=== PATIENT | male | born 1995 | race Caucasian/White ===

== ENCOUNTER 2017-10-14 23:54 | Inpatient (IN) | payer MEDICAID ==
[~2017-10-14] VITALS: Ht 175.3 cm; Wt 74.4 kg
[2017-10-15] VITALS: BP 141/82
--- NOTE | 2017-10-15 00:04 | NUR ---
PT TAKEN TO BED 10
--- NOTE | 2017-10-15 00:10 | NUR ---
PATIENT IS A 22 Y/O MALE WHO PRESENTS TO THE ED C/O ABD PAIN. PT STATES THAT IT STARTED TODAY. PT REPORTS 7/10 ACHING LOWER ABD PAIN THAT DOES NOT RADIATE. PT DENIES CP, SOB, REPORTS NAUSEA DENIES VOMITING/DIARRHEA. PT AWAKE AND ALERT, RR EVEN/UNLABORED. PT REPOSITIONED FOR COMFORT, BED IN LOWEST POSITION. ER MD DR. ORNELAS NOTIFIED. WILL CONTINUE TO MONITOR.
[2017-10-15] MEDS ORDERED: NACL 0.9% 1,000 ML IV SCH (00:11)
[2017-10-15] MEDS ORDERED: ONDANSETRON 4 MG/2 ML VIAL IVP ONE (00:15)
[2017-10-15] MEDS ORDERED: MORPHINE SULFATE 4 MG/ML SYR IVP ONE ×2 (00:15→01:55)
[2017-10-15 00:29] LABS: BASOPHILS % (AUTO) 0.2 % (0.0-2.0); EOSINOPHILS % (AUTO) 0.1 % (0.0-4.0); HEMATOCRIT 48.6 % (36-52); HEMOGLOBIN 16.5 g/dL (12.0-18.0); LYMPHOCYTES # (AUTO) 1.1 K/uL (2.0-11.5); LYMPHOCYTES % (AUTO) 10.3 % (20.5-51.1); MEAN CORPUSCULAR HEMOGLOBIN 31 pg (27-31); MEAN CORPUSCULAR HGB CONC 34 g/dL (33-37); MEAN CORPUSCULAR VOLUME 91.2 fL (80-94); MONOCYTES # (AUTO) 0.4 K/uL (0.8-1.0); NEUTROPHILS # (AUTO) 9.2 K/uL (1.8-7.7); NEUTROPHILS % (AUTO) 85.4 % (42.2-75.2); PLATELET COUNT (AUTO) 194 K/uL (140-450); RED BLOOD CELL COUNT(AUTO) 5.33 MIL/uL (4.20-6.10); RED CELL DISTRIBUTION WIDTH 13.4 % (11.6-13.7); WHITE BLOOD COUNT (AUTO) 10.8 K/uL (4.8-10.8)
[2017-10-15 00:35] LABS: APPEARANCE,URINE CLEAR (CLEAR); BILIRUBIN,URINE NEGATIVE (NEGATIVE); BLOOD, URINE NEGATIVE (NEGATIVE); COLOR,URINE YELLOW (YELLOW); LEUKOCYTE ESTERASE ,URINE NEGATIVE (NEGATIVE); NITRITE, URINE NEGATIVE (NEGATIVE); UGLUCOSE NEGATIVE (NEGATIVE)
[2017-10-15 00:45] LABS: RBC,URINE 0-5 (RARE) /HPF (0-5); URINE AMORPHOUS URATE 1+ /HPF (None Seen); WBC,URINE 0-5 (RARE) /HPF (0-5)
--- NOTE | 2017-10-15 00:50 | NUR ---
PATIENT TAKEN TO CT WITH TECH VIA WHEELCHAIR.
[2017-10-15 00:53] LABS: ALBUMIN 5.6 g/dL (3.4-5.0); CREATININE 0.9 mg/dL (0.7-1.3); POTASSIUM 3.8 mmol/L (3.5-5.1)
--- NOTE | 2017-10-15 01:01 | NUR ---
PT RETURN FROM CT
[2017-10-15 01:09] LABS: ANION GAP 13.4 (8-16); CARBON DIOXIDE 28.4 mmol/L (21-32)
--- NOTE | 2017-10-15 01:30 | NUR ---
Patient appears to be resting comfortably in bed. Vital Signs within normal limits. Respirations even and unlabored.
[2017-10-15] MEDS ORDERED: PIPERACILLIN/TAZOBACTAM 3.375 GM in DEXTROSE 5% 50 ML IV ONE (02:10)
[2017-10-15] MEDS ORDERED: metroNIDAZOLE 500 MG/NS PREMIX 100 ML IV ONE (02:10)
--- NOTE | 2017-10-15 02:10 | NUR ---
PATIENT IS RESTING AT THIS TIME. NO SIGNS OF DISTRESS.
[2017-10-15] MEDS ORDERED: PIPERACILLIN/TAZOBACTAM 3.375 GM VIAL IV ONE (02:19)
[2017-10-15] MEDS ORDERED: ACETAMINOPHEN 325 MG TAB PO PRN ×2 (02:30→19:30)
[2017-10-15] MEDS ORDERED: ZOLPIDEM 5 MG TAB PO PRN (02:30)
[2017-10-15] MEDS ORDERED: ONDANSETRON 4 MG/2 ML VIAL IVP PRN ×2 (02:30→18:40)
[2017-10-15] MEDS ORDERED: HYDROcodone/APAP 7.5/325 MG 1 TAB PO PRN (02:30)
[2017-10-15 02:53] LABS: PROTHROMBIN TIME 10.9 secs (10.8-13.4)
--- NOTE | 2017-10-15 03:00 | NUR ---
Pt transferred to Med/Surg 112B via W/C.
--- NOTE | 2017-10-15 03:00 | NUR ---
Patient will be admitted to care of DR. VARGHESE. Admited to M/S. Will go to room 112B. Belongings list completed. Report to GUSTABO LOCKHART.
--- NOTE | 2017-10-15 03:00 | NUR ---
PT ARRIVED TO UNIT VIA WHEELCHAIR BY ER NURSE GERONIMO-RN. REPORT GIVEN AT BEDSIDE. DR. PERKINS AT BEDSIDE. PT AOX4, ON ROOM AIR WITH LEFT AC #18G. DISCUSSED PLAN OF CARE AND PT VERBALIZED UNDERSTANDING. NO S/S OF RESPIRATORY DISTRESS OR DISCOMFORT NOTED AT THIS TIME. WHITE BOARD UPDATED. BED IN LOWEST POSITION, BED BREAKS ON, BOTH SIDE RAILS UP. BED SIDE TABLE AND CALL LIGHT ARE WITHIN REACH. ORIENTED PT TO BEDROOM, BED CONTROLS, CALL LIGHT, RESTROOM. WILL CONTINUE TO MONITOR.
[2017-10-15 03:01] LABS: BARBITURATE, URINE NEG. ng/ml (NEG <=200); BENZODIAZEPINE, URINE NEG. ng/mL (NEG <=200); CANNABINOID, URINE NEG. ng/mL (NEG <=50); COCAINE, URINE NEG. ng/mL (NEG <=300); OPIATE, URINE NEG. ng/mL (NEG <=2000); PHENCYCLIDINE SCREEN,URINE NEG. ng/mL (NEG <=25)
[2017-10-15 03:05] LABS: CHOL/HDL RATIO 3.5 (1-4.5); FREE T4 (FREE THYROXINE) 1.08 ng/dL (0.76-1.46); MAGNESIUM 1.9 mg/dL (1.8-2.4); PHOSPHORUS 4.2 mg/dL (2.5-4.9); THYROID STIMULATING HORMONE 0.84 uIU/mL (0.34-3.74)
[2017-10-15] MEDS: DEXT 5% /NACL 0.9% 1,000 ML IV SCH ×3 (03:14→23:00)
--- NOTE | 2017-10-15 03:30 | NUR ---
VITAL SIGNS TAKEN, MRSA COLLECTED AND TOLERATED WELL. NO S/S OF RESPIRATORY DISTRESS OR DISCOMFORT NOTED AT THIS TIME. PT C/O PAIN 06/21 HOWEVER HE STATED THAT IS A TOLERABLE LEVEL FOR HIM. WILL CONTINUE TO MONITOR.
--- NOTE | 2017-10-15 05:00 | NUR ---
PT RESTING IN BED. NO S/S OF RESPIRATORY DISTRESS OR DISCOMFORT NOTED AT THIS TIME. WILL CONTINUE TO MONITOR.
--- NOTE | 2017-10-15 06:10 | NUR ---
PT C/O PAIN 6/10- NORCO 7.5/325MG GIVEN AND TOLERATED WELL. NO S/S OF RESPIRATORY DISTRESS. WILL CONTINUE TO MONITOR.
--- NOTE | 2017-10-15 07:25 | NUR ---
ENDORSED PT CARE TO DAY SHIFT NURSE KIRSTIN FOR CONTINUITY OF CARE.
--- NOTE | 2017-10-15 07:30 | NUR ---
RECEIVED PT REPORT FROM RAILROAD CAR PAINTER RN. PT IS AAOX4, NO S/S OF SOB ON ROOM AIR. LEFT AC #18G, ASYMPTOMATIC AND INFUSING WELL. CC:ABD PAIN. POSSIBLE SX CONSULT FOR DR VALENCIA. DISCUSSED PLAN OF CARE AND PT VERBALIZED UNDERSTANDING. WHITE BOARD UPDATED. BED IN LOWEST POSITION, BED BREAKS ON, URINAL AND CALL LIGHT WITHIN REACH. ORIENTED PT TO BEDROOM, WILL CONTINUE TO MONITOR.
[2017-10-15 08:00] VITALS: BP 115/64
[2017-10-15] MEDS ORDERED: LACTOBACILLUS RHAMNOSUS GG 1 EACH CAP PO SCH (09:00)
[2017-10-15] MEDS: DOCUSATE SODIUM 100 MG GELCAP PO SCH ×2 (09:00→20:40)
--- NOTE | 2017-10-15 09:36 | NUR ---
PATIENT HAS BEEN SCREENED AND CATEGORIZED MODERATE NUTRITION RISK. PATIENT WILL BE SEEN WITHIN 3-5 DAYS OF ADMISSION. 10/17/17-10/19/[address]
[2017-10-15] MEDS: LACTOBACILLUS RHAMNOSUS GG 1 EACH CAP PO SCH (09:47)
--- NOTE | 2017-10-15 11:20 | NUR ---
PAGED DR VALENCIA FOR CONSULT.
--- NOTE | 2017-10-15 12:40 | NUR ---
DR VALENCIA HAS NOT CALLED BACK. NOTIFIED DR PRESTON WHO STATED HE ALREADY TEXT MESSAGED DR VALENCIA AND DR VALENCIA IS AWARE OF THE PT.
[2017-10-15] MEDS ORDERED: PIPERACILLIN/TAZOBACTAM 3.375 GM in DEXTROSE 5% 50 ML IV SCH (13:00)
[2017-10-15] MEDS ORDERED: DEXTROSE 5% 50 ML IV SCH (13:00)
[2017-10-15] MEDS: PIPER/TAZO 3.375GM/D5W PREMIX 50 ML IV SCH ×2 (13:16→20:40)
--- NOTE | 2017-10-15 15:40 | NUR ---
DR VALENCIA CALLED BACK. MADE HIM AWARE THE CONSULT. CT SHOWED ACUTE APPENDICITIS. DR VALENCIA STATED HE WILL COME SHORTLY.
[2017-10-15 16:03] VITALS: BP 114/64
--- NOTE | 2017-10-15 16:50 | NUR ---
DR VALENCIA HAS CAME AND TALKED TO PT ABOUT THE SX. PT AGREED WITH THE SX.
--- NOTE | 2017-10-15 17:05 | NUR ---
PT SIGNED CONSENT FOR THE SX. PT DOES NOT HAVE ANY QUESTIONS.
--- NOTE | 2017-10-15 17:30 | NUR ---
CHG WIPES GIVEN TO PT FOR CHEST, ABD AND BUE.
--- NOTE | 2017-10-15 18:00 | NUR ---
PT HAS BEEN TAKEN TO THE OR.
[2017-10-15] MEDS ORDERED: SUCCINYLCHOLINE CHLORIDE 200 MG/10 ML VIAL IVP ONE ×2 (18:20→18:28)
[2017-10-15] MEDS ORDERED: GLYCOPYRROLATE 0.2 MG/ML VIAL ONE (18:20)
[2017-10-15] MEDS ORDERED: ONDANSETRON 4 MG/2 ML VIAL ONE (18:20)
[2017-10-15] MEDS ORDERED: PROPOFOL 200 MG/20 ML VIAL IV ONE (18:20)
[2017-10-15] MEDS ORDERED: PHENYLEPHRINE 10 MG/ML VIAL ONE (18:20)
[2017-10-15] MEDS ORDERED: DESFLURANE 240 ML BTL INH ONE (18:20)
[2017-10-15] MEDS ORDERED: DEXAMETHASONE 4 MG/ML VIAL ONE (18:20)
[2017-10-15] MEDS ORDERED: ROCURONIUM 50 MG/5 ML VIAL IV ONE (18:20)
[2017-10-15] MEDS ORDERED: BUPIVACAINE-MPF/EPI 0.25% 30 ML VIAL INJ ONE (18:22)
[2017-10-15] MEDS ORDERED: fentaNYL 0.05 MG/ML VIAL ONE (18:24)
[2017-10-15] MEDS ORDERED: HYDROmorphone PFS 2 MG/ML SYR ONE (18:25)
[2017-10-15] MEDS ORDERED: HYDROmorphone 1 MG/ML AMP IVP PRN ×2 (18:40→19:30)
--- NOTE | 2017-10-15 19:14 | NUR ---
REPORT RECEIVED FROM AM NURSE AT BEDSIDE. PT IN STABLE CONDITION. AAOX4. INTRODUCED SELF AND BOARD UPDATED. IV SITE PATENT AND INTACT. SKIN WARM, DRY, AND NOT INTACT DUE TO SURGICAL WOUNDS AT THE ABDOMEN. DRESSINGS ARE DRY AND INTACT AND WERE NOT CHANGED THIS SHIFT. PT STATES NO PAIN. NO S/S OF DISTRESS. ENCOURAGED TO AMBULATE. BED LOCKED IN LOW POSITION. CALL [place] WITHIN REACH. Addendum: 10/17/17 at 0109 by Yomi Thornton RN NOTE DONE ON 10/16/17
--- NOTE | 2017-10-15 19:22 | NUR ---
ENDORSED PT TO DOWEL MAKER NURSE RN. PT IS IN OR AT THIS TIME.
--- NOTE | 2017-10-15 19:23 | NUR ---
RECEIVED PT REPORT FROM DAY SHIFT NURSE KIRSTIN. PT CURRENTLY OUT OF UNIT IN OR FOR LAPAROSCOPIC APPENDECTOMY SINCE 1799.
[2017-10-15] MEDS ORDERED: MORPHINE SULFATE 2 MG/ML SYR IVP PRN (19:30)
[2017-10-15] MEDS ORDERED: HYDROcodone/APAP 5/325 MG 1 TAB TAB PO PRN (19:30)
[2017-10-15] MEDS ORDERED: MORPHINE SULFATE 4 MG/ML SYR IV PRN (19:30)
[2017-10-15] MEDS ORDERED: ONDANSETRON 4 MG/2 ML VIAL IV PRN (19:30)
[2017-10-15 20:00] VITALS: BP 121/69
--- NOTE | 2017-10-15 20:00 | NUR ---
PT HAS ARRIVED FROM OR. RECEIVED REPORT FROM OR NURSE ENRIQUEZ-CHANTELLE AT BEDSIDE. VITAL SIGNS TOLERATED WELL AND STABLE. PT IS AAOX4-AWAKE, ON ROOM AIR, LEFT AC #18G-ASYMPTOMATIC AND INFUSING WELL. DISCUSSED PLAN OF CARE AND PT VERBALIZED UNDERSTANDING. NO S/S OF RESPIRATORY DISTRESS OR DISCOMFORT NOTED AT THIS TIME. WHITE BOARD UPDATED. BED IN LOWEST POSITION, BED BREAKS ON, BOTH SIDE RAILS UP. BED SIDE TABLE, URINAL AND CALL LIGHT WITHIN REACH. WILL CONTINUE TO MONITOR.
--- NOTE | 2017-10-15 20:45 | NUR ---
SPOKE WITH DR. MARIE ABOUT PT DIET NOT BEING SPECIFIED AFTER SURGERY BY DR. VALENCIA. TO FOLLOW PROTOCOL AND START PT ON A CLEAR LIQUID DIET. OK COLACE GEL CAPSULE TO BE GIVEN. SCHEDULED MEDICATION GIVEN AND TOLERATED WELL. NO S/S OF RESPIRATORY DISTRESS OR DISCOMFORT NOTED AT THIS TIME. ICE WATER AND CRANBERRY JUICE GIVEN REQUESTED. WILL CONTINUE TO MONITOR.
--- NOTE | 2017-10-15 23:00 | NUR ---
PT RESTING IN BED. NO S/S OF RESPIRATORY DISTRESS OR DISCOMFORT NOTED AT THIS TIME. WILL CONTINUE TO MONITOR.
[2017-10-16] VITALS: BP 112/64
--- NOTE | 2017-10-16 | NUR ---
VITAL SIGNS TAKEN AND TOLERATED WELL. NO S/S OF RESPIRATORY DISTRESS OR DISCOMFORT NOTED AT THIS TIME. WILL CONTINUE TO MONITOR.
--- NOTE | 2017-10-16 02:00 | NUR ---
PT SLEEPING IN BED. NO S/S OF RESPIRATORY DISTRESS OR DISCOMFORT NOTED AT THIS TIME. WILL CONTINUE TO MONITOR.
[2017-10-16] MEDS ORDERED: PIPER/TAZO 3.375GM/D5W PREMIX 50 ML IV SCH (03:00)
--- NOTE | 2017-10-16 03:00 | NUR ---
ZOSYN FREQUENCY SCHEDULED CHANGED TO Q6H NOW DUE INSTEAD OF Q8H DUE AT 0500. NOTE ALSO ON MEDICATION LABEL. ADMINISTERED SCHEDULED MEDICATION. PT TOLERATED WELL. NO S/S OF RESPIRATORY DISTRESS OR DISCOMFORT. WILL CONTINUE TO MONITOR.
--- NOTE | 2017-10-16 05:00 | NUR ---
PT SLEEPING IN BED. NO S/S OF RESPIRATORY DISTRESS OR DISCOMFORT NOTED AT THIS TIME. WILL CONTINUE TO MONITOR.
[2017-10-16 05:58] LABS: HEMATOCRIT 47.5 % (36-52); HEMOGLOBIN 16.2 g/dL (12.0-18.0); MEAN CORPUSCULAR HEMOGLOBIN 31 pg (27-31); MEAN CORPUSCULAR HGB CONC 34 g/dL (33-37); MEAN CORPUSCULAR VOLUME 91.8 fL (80-94); PLATELET COUNT (AUTO) 190 K/uL (140-450); RED BLOOD CELL COUNT(AUTO) 5.17 MIL/uL (4.20-6.10); RED CELL DISTRIBUTION WIDTH 13.4 % (11.6-13.7); WHITE BLOOD COUNT (AUTO) 10.8 K/uL (4.8-10.8)
--- NOTE | 2017-10-16 07:10 | NUR ---
ENDORSED PT CARE TO DAY SHIFT NURSE KIRSTIN FOR CONTINUITY OF CARE.
[2017-10-16 07:21] LABS: ANION GAP 14.2 (8-16); CARBON DIOXIDE 28.9 mmol/L (21-32); CREATININE 0.9 mg/dL (0.7-1.3); POTASSIUM 4.1 mmol/L (3.5-5.1)
[2017-10-16 07:24] LABS: MAGNESIUM 1.7 mg/dL (1.8-2.4); PHOSPHORUS 4.2 mg/dL (2.5-4.9)
[2017-10-16 07:29] LABS: BASOPHILS % (MANUAL) 0 % (0-2); EOSINOPHILS % (MANUAL) 1 % (0-4); LYMPHOCYTES % (MANUAL) 11 % (20-46); MONOCYTES % (MANUAL) 10 % (5-12)
--- NOTE | 2017-10-16 07:30 | NUR ---
RECEIVED PT REPORT FROM FILTER PLANT OPERATOR RN. PT IS AAOX4, NO S/S OF SOB ON ROOM AIR. LEFT AC #18G, ASYMPTOMATIC AND INFUSING WELL. S/P LAP APPY 10/15/17. 3 INCISIONS COVERED WITH BANDAGES, DRY AND INTACT, NO DRAINAGE NOTED. DISCUSSED PLAN OF CARE AND PT VERBALIZED UNDERSTANDING. WHITE BOARD UPDATED. BED IN LOWEST POSITION, BED BREAK ON, CALL LIGHT WITHIN REACH. WILL CONTINUE TO MONITOR.
[2017-10-16 08:00] VITALS: BP 120/60
[2017-10-16] MEDS: LACTOBACILLUS RHAMNOSUS GG 1 EACH CAP PO SCH (08:44)
[2017-10-16] MEDS: DOCUSATE SODIUM 100 MG GELCAP PO SCH ×2 (08:44→20:15)
[2017-10-16] MEDS: DEXT 5% /NACL 0.9% 1,000 ML IV SCH ×2 (08:44→18:03)
--- NOTE | 2017-10-16 08:50 | NUR ---
BOWEL SOUND ACTIVE. SCHEDULED MEDS GIVEN. PT TOLERATED WELL. ENCOURAGED PT TO AMB.
--- NOTE | 2017-10-16 11:18 | NUR ---
DRESSING REMOVED, RINSED WITH NS, PATTED DRY, PIC TAKEN, NEW BANDAGES APPLIED. PT TOLERATED WELL.
[2017-10-16] MEDS: PIPER/TAZO 3.375GM/D5W PREMIX 50 ML IV SCH ×2 (11:42→18:00)
[2017-10-16 16:00] VITALS: BP 122/71
[2017-10-16] MEDS ORDERED: MAGNESIUM OXIDE 400 MG TAB PO SCH (16:00)
[2017-10-16] MEDS: NACL 0.9% 1,000 ML IV SCH (19:11)
--- NOTE | 2017-10-16 19:13 | NUR ---
ENDORSED PT TO OXYGEN THERAPY TEACHER RN. PT IS IN STABLE CONDITION.
--- NOTE | 2017-10-16 20:15 | NUR ---
COLACE GIVEN. PT HAS NOT PASSED FLATUS OR HAD A BM SINCE SX. ENCOURAGED TO WALK AROUND THE UNIT TO HELP PASS FLATUS. PT TOLERATED WELL.
[2017-10-17] VITALS: BP 125/60
--- NOTE | 2017-10-17 | NUR ---
ELANA MOON. PT TOLERATED WELL. WILL CONTINUE TO MONITOR.
[2017-10-17] MEDS: PIPER/TAZO 3.375GM/D5W PREMIX 50 ML IV SCH ×3 (00:01→13:08)
--- NOTE | 2017-10-17 03:00 | NUR ---
PT SLEEPING COMFORTABLY IN BED LEFT LATERAL. CHEST EXPANSION SEEN. NO S/S OF DISTRESS. WILL CONTINUE TO MONITOR.
--- NOTE | 2017-10-17 05:14 | NUR ---
ELANA MOON. PT TOLERATED WELL. NO S/S OF DISTRESS.
[2017-10-17] MEDS: NACL 0.9% 1,000 ML IV SCH (06:33)
--- NOTE | 2017-10-17 07:11 | NUR ---
REPORT GIVEN TO AM NURSE AT BEDSIDE. PT IN STABLE CONDITION.
--- NOTE | 2017-10-17 07:12 | NUR ---
RECEIVED BEDSIDE REPORT FROM ENGRAVER BLOCK NURSE. PATIENT IS SLEEPING. NO SIGNS OF DISTRESS ON ROOM AIR. PATIENT AMBULATED FINE. 3 ABDOMINAL INCISIONS FROM LAP APPY. BANDAGE IS CLEAN, DRY AND INTACT. MED SURGE PATIENT. IV ON L AC 18G INFUSING NS AT 80. IV IS CLEAN, DRY AND INTACT. NO COMPLAINTS AT THIS TIME. WILL CONTINUE TO MONITOR THE PATIENT. BED IN LOW POSITION. CALL LIGHT WITHIN REACH
[2017-10-17 07:23] LABS: BASOPHILS % (AUTO) 0.3 % (0.0-2.0); EOSINOPHILS # (AUTO) 0.1 K/uL (0-0.4); EOSINOPHILS % (AUTO) 0.7 % (0.0-4.0); HEMATOCRIT 42.5 % (36-52); HEMOGLOBIN 14.4 g/dL (12.0-18.0); LYMPHOCYTES # (AUTO) 1.5 K/uL (2.0-11.5); LYMPHOCYTES % (AUTO) 18.4 % (20.5-51.1); MEAN CORPUSCULAR HEMOGLOBIN 31 pg (27-31); MEAN CORPUSCULAR HGB CONC 34 g/dL (33-37); MEAN CORPUSCULAR VOLUME 91.5 fL (80-94); MONOCYTES % (AUTO) 12.5 % (1.7-9.3); NEUTROPHILS # (AUTO) 5.5 K/uL (1.8-7.7); NEUTROPHILS % (AUTO) 68.1 % (42.2-75.2); PLATELET COUNT (AUTO) 166 K/uL (140-450); RED BLOOD CELL COUNT(AUTO) 4.64 MIL/uL (4.20-6.10); RED CELL DISTRIBUTION WIDTH 13.4 % (11.6-13.7)
[2017-10-17 07:24] LABS: ANION GAP 10.7 (8-16); POTASSIUM 3.7 mmol/L (3.5-5.1)
[2017-10-17 07:51] LABS: MAGNESIUM 1.7 mg/dL (1.8-2.4); PHOSPHORUS 3.1 mg/dL (2.5-4.9)
[2017-10-17 08:00] VITALS: BP 115/75
--- NOTE | 2017-10-17 09:00 | NUR ---
PATIENT AMBULATED AROUND THE HALLS. GAIT IS STEADY. HE SAID HE PASSED GAS BUT NO BM AT THIS TIME. WILL CONTINUE TO MONITOR THE PATIENT.
[2017-10-17] MEDS: LACTOBACILLUS RHAMNOSUS GG 1 EACH CAP PO SCH (10:36)
[2017-10-17] MEDS: DOCUSATE SODIUM 100 MG GELCAP PO SCH (10:37)
--- NOTE | 2017-10-17 10:40 | NUR ---
ADMINISTERED MEDS. PATIENT TOLERATED WELL. WILL CONTINUE TO MONITOR THE PATIENT,
[2017-10-17] MEDS ORDERED: MAGNESIUM OXIDE 400 MG TAB PO SCH (11:14)
[2017-10-17] MEDS ORDERED: SIMETHICONE 80 MG TAB.CHEW PO SCH (11:29)
--- NOTE | 2017-10-17 13:09 | NUR ---
ADMINISTERED MEDS. PATIENT TOLERATED WELL. IV IS CLEAN, DRY AND INTACT. WILL CONTINUE TO MONITOR THE PATIENT
[2017-10-17] MEDS ORDERED: SIME80CT27 PO (14:09)
[2017-10-17] MEDS ORDERED: ACET-9525 PO (14:09)
[2017-10-17] MEDS ORDERED: DOCU-299 PO (14:09)
[2017-10-17] MEDS ORDERED: LACT10CA PO (14:09)
[2017-10-17] MEDS ORDERED: SULF-58 PO (14:09)
[2017-10-17] MEDS ORDERED: METR250T2 PO (14:09)
--- NOTE | 2017-10-17 15:50 | NUR ---
EDUCATED PATIENT AND DAD ABOUT DISEASE PROCESS, HOW TO TAKE CARE OF SURGICAL SITES, ABN S/SX, WHEN TO GO TO THE NEARED ER, F/U APPOINTMENT W DR VALENCIA, EDUCATED ON MEDS AND GAVE PRESCRIPTIONS. PATIENT VERBALIZED UNDERSTANDING. REMOVED ID BANDS, REMOVED IV, IV TIP INTACT. PATIENT LEFT WALKING IN STABLE CONDITION WITH HIS DAD. ALL PAPERWORK SIGNED AND GIVEN TO PATIENT.
== END 2017-10-17 15:50 | disposition home or self-care (01) | DRG 225 ==
LOC: MED 23:54 → MTU 10-15 02:30
PROVIDERS: ADMIT General Practice; ATTEND General Practice
PROC: 0DTJ4ZZ Resection of Appendix, Percutaneous Endoscopic Approach (ICD-10-PCS; principal; 2017-10-15 18:00)
DX: K35.80 Unspecified acute appendicitis (principal); K56.609 Unspecified intestinal obstruction, unspecified as to partial versus complete obstruction; E83.42 Hypomagnesemia; K56.7 Ileus, unspecified; N39.0 Urinary tract infection, site not specified; R74.0 Nonspecific elevation of levels of transaminase and lactic acid dehydrogenase [LDH]; E80.6 Other disorders of bilirubin metabolism; R01.1 Cardiac murmur, unspecified
CPT/HCPCS: 36415; 71045; 74018; 80048; 80053; 80305; 81001; 82150; 82374; 83036; 83690; 83735; 83880; 84100; 84439; 84443; 85025; 85610; 85730; 86886; 86900; 86901; 87081; 87086; 88304; 93005; 96365; 96375; 96376; 99285; J0330; J1100; J1170; J2270; J2370; J2405; J2543; J2704; J3010; J3490; J7030; J7042; J7060; Q0092